=== PATIENT | male | born 1995 | race Caucasian/White ===

== ENCOUNTER 2020-06-05 13:35 | Outpatient (REF) | payer MEDICAID, SELFPAY ==
[2020-06-08 05:49] LABS: SARS-CoV-2 RNA Undetected (Undetected); SARS-CoV-2 Specimen Source Nasopharynx
== END 2020-06-05 13:55 ==
LOC: NCHCN 13:35
PROVIDERS: Visit Provider Family Medicine
DX: Z20.828 Contact with and (suspected) exposure to other viral communicable diseases (principal)
CPT/HCPCS: U0003

== ENCOUNTER 2021-04-21 13:40 | Outpatient (REF) | payer MEDICAID, SELFPAY | END 2021-04-22 10:58 | disposition home or self-care (01) | LOC: NCHCN 13:40 | PROVIDERS: Visit Provider Nurse Practitioner Family | DX: K62.5 Hemorrhage of anus and rectum (principal) | CPT/HCPCS: 83630 ==

== ENCOUNTER 2021-07-16 07:57 | Outpatient (REF) | payer MEDICAID, SELFPAY ==
[2021-07-15 21:56] LABS: HCT 41.2 % (40.0-50.0); HGB 13.9 g/dL (13.5-17.5); MCH 30.1 pg (27.0-33.0); MCHC 33.7 % (32.0-36.0); MCV 89.2 fL (80-95); MPV 10.3 fL (8.0-11.0); Platelet Count 273 10^3/uL (130-400); RBC 4.62 10^6/uL (4.36-5.78); RDW 12.3 % (11.8-14.1); RDW-SD 39.8 fL; WBC 6.32 10^3/uL (4.4-10.8)
[2021-07-15 22:09] LABS: Iron 86 ug/dL (65-175); Total Iron Binding Capacity 277 ug/dL (250-450); Transferrin Sat 31 % (20-55)
[2021-07-15 22:15] LABS: Anion Gap 8.1 mmol/L (3-11); BUN 25 mg/dL (7-18); CO2 28.9 mmol/L (21.0-32.0); CREATININE 0.9 mg/dL (0.70-1.30); Calcium 9.1 mg/dL (8.5-10.1); Chloride 105 mmol/L (98-107); Ferritin 76 ng/mL (26-388); Glucose 111 mg/dL (74-106); Potassium 4.3 mmol/L (3.5-5.1); Sodium 142 mmol/L (136-145); TSH (W/Ref FT4) 0.57 uIU/mL (0.36-3.74)
[2021-07-16 13:59] LABS: Hemoglobin A1C 5.5 % (<5.7)
== END 2021-07-16 07:58 | disposition home or self-care (01) ==
LOC: NCHCN 07:57
PROVIDERS: Visit Provider Nurse Practitioner Family
DX: R53.83 Other fatigue (principal); Z00.00 Encounter for general adult medical examination without abnormal findings
CPT/HCPCS: 80048; 85027; 82728; 83036; 83540; 83550; 84443